=== PATIENT | male | born 1950 | race Hispanic/Latino ===

== ENCOUNTER 2017-03-05 15:18 | Emergency (ER) | payer BC, MEDICARE ==
[2017-03-05 16:12] VITALS: BP 152/96
[2017-03-05 20:45] LABS: Basophils % (Auto) 0.5 % (0.0-1.8); Hematocrit 41.7 % (35.5-45.6); Hemoglobin 13.9 gm/dl (11.8-15.2); Mean Corpuscular HGB Conc 33 % (32-34); Mean Corpuscular Hemoglobin 29 pg (28-32); Mean Corpuscular Volume 87 fl (84-94); Platelet Count 232 K/mm3 (140-440); Red Blood Count 4.82 M/mm3 (3.65-5.03); Red Cell Distribution Width 15.3 % (13.2-15.2); White Blood Count 8.5 K/mm3 (4.5-11.0)
--- NOTE | 2017-03-05 20:56 | XRay Report ---
FINAL REPORT PROCEDURE: XR FOOT 3+V RT TECHNIQUE: RIGHT foot radiographs, AP, lateral, and oblique views. CPT 79694 HISTORY: foot pain, hx of gout COMPARISON: No prior studies are available for comparison. FINDINGS: Fracture (s) and/or Dislocation(s): None . Alignment: Normal . Joint space(s): Mild narrowing of the joint spaces. Soft tissues: Normal . Bone mineralization: Normal . Foreign bodies: None . Calcaneal spurring: None . IMPRESSION: There is no acute fracture or dislocation. Mild arthritis..
[2017-03-05 21:12] LABS: Anion Gap 17 mmol/L; Blood Urea Nitrogen 14 mg/dL (9-20); Calcium 9.3 mg/dL (8.4-10.2); Carbon Dioxide 27 mmol/L (22-30); Chloride 100.6 mmol/L (98-107); Glucose 150 mg/dL (75-100); Potassium 3.9 mmol/L (3.6-5.0); Sodium 141 mmol/L (137-145)
[2017-03-05] MEDS ORDERED: NORCO 7.5/325 PO ONE (21:15)
[2017-03-05] MEDS ORDERED: TORADOL IM ONE (21:15)
--- NOTE | 2017-03-05 22:45 | Emergency Department Report ---
ED Lower Extremity HPI - General Chief Complaint: Extremity Injury, Lower Stated Complaint: GOUT/RIGHT GREAT TOE PAIN Source: patient Mode of arrival: Ambulatory Limitations: No Limitations - History of Present Illness Initial Comments: 67 year old male presents to ED with right 1st toe pain x1 day. patient has history of gout. patient is currently not on gout medication. patient states this feels like his normal gout flare up pain. patient is stable, neurologically intact and in no acute distress. patient is afebrile. -: Sudden Injury: Foot: Right Severity: mild Improves With: NSAID Worsens With: weight bearing, movement Associated Symptoms: swelling, ambulatory. denies: snap/pop sensation, numbness , tingling, unable to bear weight - Related Data Previous Rx's Medication Instructions Recorded Last Taken Type Colchicine 0.6 mg PO BID #6 capsule 03/05/17 Unknown Rx Allergies Allergy/AdvReac Type Severity Reaction Status Date / Time Penicillins AdvReac Anaphylaxis Verified 03/05/17 16:18 ED Review of Systems ROS: Stated complaint: GOUT/RIGHT GREAT TOE PAIN Other details as noted in HPI Constitutional: denies: chills, fever Eyes: denies: eye pain, eye discharge, vision change ENT: denies: ear pain, throat pain Respiratory: denies: cough, shortness of breath, wheezing Cardiovascular: denies: chest pain, palpitations Endocrine: no symptoms reported Gastrointestinal: denies: abdominal pain, nausea, diarrhea Genitourinary: denies: urgency, dysuria Musculoskeletal: joint swelling, arthralgia. denies: back pain Skin: denies: rash, lesions Neurological: denies: headache, weakness, paresthesias Psychiatric: denies: anxiety, depression Hematological/Lymphatic: denies: easy bleeding, easy bruising ED Past Medical Hx - Past Medical History Previous Medical History?: Yes Hx Hypertension: Yes Hx Diabetes: Yes Additional medical history: chlesterol - Surgical History Past Surgical History?: Yes Hx Cholecystectomy: Yes Additional Surgical History: T&A - Social History Smoking Status: Never Smoker Substance Use Type: Alcohol - Medications Home Medications: Home Medications Medication Instructions Recorded Confirmed Last Taken Type Colchicine 0.6 mg PO BID #6 capsule 03/05/17 Unknown Rx ED Physical Exam - General Limitations: No Limitations General appearance: alert, in no apparent distress - Head Head exam: Present: atraumatic, normocephalic - Eye Eye exam: Present: normal appearance - ENT ENT exam: Present: mucous membranes moist - Neck Neck exam: Present: normal inspection - Respiratory Respiratory exam: Present: normal lung sounds bilaterally. Absent: respiratory distress - Cardiovascular Cardiovascular Exam: Present: regular rate, normal rhythm. Absent: systolic murmur, diastolic murmur, rubs, gallop - GI/Abdominal GI/Abdominal exam: Present: soft, normal bowel sounds. Absent: distended, tenderness - Rectal Rectal exam: Present: deferred - Extremities Exam Extremities exam: Present: normal inspection - Expanded Lower Extremity Exam Right Hip exam: Present: normal inspection Upper Leg exam: Present: normal inspection Knee exam: Present: normal inspection Lower Leg exam: Present: normal inspection Ankle exam: Present: normal inspection Foot/Toe exam: Present: full ROM, tenderness (right 1st toe), swelling (mild), erythema (mild). Absent: abrasion, laceration, ecchymosis Neuro vascular tendon exam: Present: no vascular compromise Gait: Positive: observed and normal - Back Exam Back exam: Present: normal inspection - Neurological Exam Neurological exam: Present: alert, oriented X3, normal gait - Psychiatric Psychiatric exam: Present: normal affect, normal mood - Skin Skin exam: Present: warm, dry, intact, normal color. Absent: rash ED Course Vital Signs 03/05/17 03/05/17 16:10 21:42 Temperature 98.7 F Pulse Rate 86 Respiratory 18 12 Rate Blood Pressure 152/96 O2 Sat by Pulse 97 Oximetry ED Lower Extremity MDM - Lab Data Result diagrams: 03/05/17 20:30 03/05/17 20:30 Labs 03/05/17 03/05/17 20:30 20:30 WBC 8.5 RBC 4.82 Hgb 13.9 Hct 41.7 MCV 87 MCH 29 MCHC 33 RDW 15.3 H Plt Count 232 Lymph % (Auto) 23.6 [place] % (Auto) 9.8 H Eos % (Auto) 2.0 Baso % (Auto) 0.5 Lymph # 2.0 [place] # 0.8 Eos # 0.2 Baso # 0.0 Seg Neutrophils % 64.1 Seg Neutrophils # 5.5 Sodium 141 Potassium 3.9 Chloride 100.6 Carbon Dioxide 27 Anion Gap 17 BUN 14 Creatinine 0.8 Estimated GFR > 60 BUN/Creatinine Ratio 17.50 Glucose 150 H Calcium 9.3 - Radiology Data Radiology results: report reviewed xray right foot there is no acute fracture or dislocation. mild arthritis. - Medical Decision Making 67 year old male presents to ED with acute gout flare. patient has normal WBC and normal BUN/Cr. patient has decreased pain with IM NSAIDS. patient is stable , neurologically intact and in no acute distress. Critical care attestation.: If time is entered above; I have spent that time in minutes in the direct care of this critically ill patient, excluding procedure time. ED Disposition Clinical Impression: Gout attack Qualifiers: Gout site: foot Gout etiology: unspecified cause Laterality: right Qualified Code(s): M10.9 - Gout, unspecified Disposition: - TO HOME OR SELFCARE Is pt being admited?: No Does the pt Need Aspirin: No Condition: Stable Instructions: Acute Gouty Arthritis (ED) Prescriptions: Colchicine 0.6 mg PO BID #6 capsule Referrals: PRIMARY CARE, [Primary Care Provider] - 3-5 Days
== END 2017-03-05 22:12 | disposition home or self-care (01) ==
LOC: ED 15:18
DX: M10.9 Gout, unspecified (principal); I10 Essential (primary) hypertension; E11.9 Type 2 diabetes mellitus without complications; Z88.0 Allergy status to penicillin
CPT/HCPCS: 36415; 73630; 80048; 85025; 96372; 99284; J1885